=== PATIENT | female | born 1950 | race Caucasian/White ===

== ENCOUNTER 2024-12-11 17:13 | Emergency (ER) | payer MEDICARE ==
[~2024-12-11] VITALS: Ht 154.9 cm; Wt 47.6 kg
[2024-12-11 17:18] VITALS: PULSE 88; RESP 17; TEMP 98.1; O2SAT 96
[2024-12-11] MEDS ORDERED: CEPHALEXIN500 MG PO (17:40)
== END 2024-12-11 17:40 | disposition home or self-care (01) ==
LOC: ER 17:28
DX: S81.812A Laceration without foreign body, left lower leg, initial encounter (principal); W22.8XXA Striking against or struck by other objects, initial encounter; Y92.512 Supermarket, store or market as the place of occurrence of the external cause
CPT/HCPCS: 99283